=== PATIENT | male | born 1985 | race Caucasian/White ===

== ENCOUNTER 2023-08-29 15:42 | Emergency (ER) | payer SELFPAY ==
[~2023-08-29] VITALS: Ht 177.8 cm; Wt 103.9 kg
[2023-08-29 15:52] VITALS: BP 138/87; PULSE 74; RESP 18; TEMP 98.3; O2SAT 98
[2023-08-29] MEDS ORDERED: ACETAMINOPHEN EXTRA STRENGTH 500 MG TAB PO ONE (17:20)
[2023-08-29] MEDS ORDERED: ACET-10509 PO (17:28)
== END 2023-08-29 17:59 | disposition home or self-care (01) ==
LOC: MED 15:42
DX: R51.9 Headache, unspecified (principal); G93.0 Cerebral cysts; Z98.890 Other specified postprocedural states; Z79.899 Other long term (current) drug therapy
CPT/HCPCS: 70450; 99284